=== PATIENT | male | born 1995 | race Caucasian/White ===

== ENCOUNTER 2019-08-26 15:35 | Emergency (ER) | payer OTHER ==
[~2019-08-26] VITALS: Ht 182.9 cm; Wt 77.1 kg
[2019-08-26 15:46] VITALS: BP 126/65
[2019-08-26] MEDS ORDERED: CEPHALEXIN MONOHYDRATE 500 MG CAPSULE PO ONE ×2 (18:30→18:45)
[2019-08-26] MEDS ORDERED: IBUPROFEN 600 MG TABLET PO ONE ×2 (18:30→18:45)
== END 2019-08-26 18:53 | disposition home or self-care (01) ==
LOC: ER 15:35
DX: S62.636A Displaced fracture of distal phalanx of right little finger, initial encounter for closed fracture (principal); S60.151A Contusion of right little finger with damage to nail, initial encounter; Z90.89 Acquired absence of other organs; Z60.2 Problems related to living alone; W23.1XXA Caught, crushed, jammed, or pinched between stationary objects, initial encounter; Y93.89 Activity, other specified; Y92.89 Other specified places as the place of occurrence of the external cause; Y99.8 Other external cause status
CPT/HCPCS: 73140-TC